=== PATIENT | female | born 1940 | race Caucasian/White ===

== ENCOUNTER 2025-03-08 09:58 | Outpatient (CLI) | payer MEDICARE, SELFPAY ==
--- OUTSIDE RECORDS SUMMARY | 2025-03-08 10:23 | XMS_ITS | Clinical Summary ---
Author Organization [facility] Address [address] [place] [address] Phone Care Team Providers Care Refractory Furnace Designer Name Role Phone OtisLa castañeda Libertad PAC Primary Care Provider [phone] Omar Cortes MD Unavailable [phone] Allergies Active Allergy Reactions Criticality Noted Date Comments Penicillins Hives,Rash Medications Meloxicam 15 MG Tablet Take by mouth. Active clidinium-chlord iazepoxide (LIBRAX) 5-2.5 MG Capsule Take by mouth. Active Dolomite 130-78 MG Tablet Take by mouth. Active simvastatin (ZOCOR) 40 MG Tablet Take 20 mg by mouth. Active potassium chloride SA (KLOR-CON M10) 10 MEQ Tablet Controlled Release Take by mouth. Active lisinopril-hydro chlorothiazide (PRINZIDE, ZESTORETIC) 20-12.5 MG Tablet Take by mouth 2 times daily. Active Cholecalciferol (VITAMIN D3) 1000 UNITS Capsule Take by mouth 2 times daily. Active omeprazole (PRILOSEC) 20 MG CAPSULE DELAYED RELEASE Take 20 mg by mouth. Active amLODIPine (NORVASC) 5 MG Tablet Take 5 mg by mouth daily. Active magnesium oxide (MAG-OX) 400 MG Tablet Take 400 mg by mouth daily. Active Coenzyme Q10 (Co Q-10) 100 MG Capsule Take 100 mg by mouth daily. Active ondansetron (ZOFRAN-ODT) 4 MG TABLET DISPERSIBLE Take 4 mg by mouth every 8 hours as needed. Active famotidine (PEPCID) 20 MG Tablet Take 20 mg by mouth 2 times daily. Active Carboxymethylcel lulose Sodium (EYE DROPS OP) Place in affected eye(s). Active Misc Natural Products (NEURIVA PO) Take by mouth. Active busPIRone (BUSPAR) 5 MG Tablet TAKE 1 TABLET BY MOUTH 2 TIMES DAILY NEEDED FOR OTHER (ANXIETY). 60 Tablet 1 Active fluticasone (FLONASE) 50 MCG/ACT SuspensionIndica tions:Allergic rhinitis, unspecified seasonality, unspecified trigger 2 Sprays by Nasal route daily for 30 days. Use in each nostril as directed. 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 History of right breast cancer 05/18/2024 Unspecified disorder of calcium metabolism 05/18 Resolved Problems Problem Noted Date Diagnosed Date Resolved Date Elevated prostate specific antigen (PSA) 05/18/2024 06/29/2024 Encounters Date Type Department Care Team Description 03/03/2025 9:00 AM CDT Office Visit [facility] [address] [place] [address] Omar Cortes MD Hearing difficulty of both ears (Primary Dx); Allergic rhinitis, unspecified seasonality, unspecified trigger; Rhinitis medicamentosa; Tinnitus, bilateral Discharge Disposition: Discharged to home or Selfcare 03/03/2025 Travel 01/25/2025 11:40 AM CDT [facility] [address] [place] [address] Christopher Pittman MD Bone lesion (Primary Dx); Cancer, metastatic to bone (HCC); Metastatic carcinoid tumor (HCC); History of right breast cancer Discharge Disposition: Discharged to home or Selfcare 01/25/2025 Travel from Last 3 Months Immunizations Immunization Administration Dates Next Due Influenza, Trivalent, Adjuvanted, PF 08/10/2024 Family History Medical History Relation Name Comments Cancer Mother Relation Name Status Comments Mother Social History Tobacco Use Types Packs/Day Years Used Date Smoking Tobacco: Never Smokeless Tobacco: Never Tobacco Cessation:Counseling Given: Not Answered Alcohol Use Standard Drinks/Week Comments Yes 0 (1 standard drink = 0.6 oz pur e alcohol) Comments No Sex and Gender Information Value Date Recorded Sex Assigned at Not on file Legal Sex Female 9:34 PM CDT Gender Identity Not on file Sexual Orientation Not on file Last Filed Vital Signs Vital Sign Reading Time Taken Comments Blood Pressure 122/80 03/03/2025 9:07 AM CDT Pulse 76 03/03/2025 9:07 AM CDT Temperature 36.3 C (97.3 F) 03/03/2025 9:07 AM CDT Respiratory Rate 18 01/25/2025 12:02 PM CDT Oxygen Saturation 98% 03/03/2025 9:07 AM CDT Inhaled Oxygen Concentration - - Weight 72.1 kg (159 lb) 03/03/2025 9:07 AM CDT Height 167.6 cm (5' 6) 03/03/2025 9:07 AM CDT Body Mass Index 25.66 03/03/2025 9:07 AM CDT Plan of Treatment Upcoming Encounters Date Type Department Care Team (Late st Contact Info) Description 03/22/2025 3:00 PM CDT [facility] Visit [facility] [address] [place] [phone] Christopher Pittman MD [address] [place] [address] Discharge Disposition: Discharged to home or Selfcare 03/31/2025 9:30 AM CDT Office Visit [facility] - [place] [address] [place] [address] Omar Cortes MD [address] [place] [address] [phone] Health Maintenance Due Date Last Done Comments Hepatitis C Virus (HCV) Screening 1940 TdaP Immunization 1940 Zoster Immunization (1 of 2) 1957 Respiratory Syncytial Virus (RSV) Immunization (Adult) (1 - 1-dose 75+ series) 2013 SARS-COV-2 Immunization ( season) 2024 03/18/2022, 12/07/2020, 11/09/2020 DEXA Bone Density 07/06/2026 07/06/2024 Pneumococcal Immunization (50+ years) Completed 12/25/2021, 06/15/2018, 10/19/2015 Pneumococcal Immunization Combined Discontinued 12/25/2021, 06/15/2018, 10/19/2015 Influenza Immunization Completed , 07/02/2023, 08/01/2022, Additional history exists Hepatitis B Immunization Aged Out No longer eligible based on patient's age to complete this topic Human Papillomavirus (HPV) Immunization Aged Out No longer eligible based on patient's age to complete this topic Meningococcal Immunization (ACWY) Aged Out No longer eligible based on patient's age to complete this topic Rotavirus Immunization Aged Out No lo nger eligible based on patient's age to complete this topic Procedures Procedure Name Priority Date/Time Associated Diagnosis Comments BONE DENSITY GENERIC 07/06/2024 12:00 AM CDT from Last 3 Months or Most Recently Relevant to Health Maintenance Results * BONE DENSITY GENERIC SCAN (07/06/2024 12:00 AM CDT) 07/06/2024 [facility] Jessica Pittman MD IMG DEXA ORDERABLES Yuly l Result SCAN from Last 3 Months or Most Recently Relevant to Health Maintenance Insurance MEDICARE [employer] Care Teams Refractory Furnace Designer Relationship Specialty Start Date End Date La Burkett, PAC [address] [place] [address] PCP - General Family Medicine 06/29/24 Omar Cortes MD [address] [phone] Consulting Physician Otolaryngology 02/25/25
--- OUTSIDE RECORDS SUMMARY | 2025-03-08 10:23 | XMS_ITS | Clinical Summary ---
Author Organization [facility] [employer] Address [address] [facility] [place] [address] Care Team Providers Care Vp Delivery Name Role Phone Ron Zamudio MD Unavailable [phone] Gogo Contreras MD Unavailable [phone] AslamRayne MD Unavailable La Burkett Primary Care Provider [phone] Source Comments [facility] [employer],non-owned Affiliates and Associated Physician Practices is amultiple site organization consisting of ambulatory clinics and hospital sitesin [place], [place] and [place]. This disclosure is being madepursuant to the Care Everywhere program and may not contain all information available regarding this patient. Last updated 18.[facility] [employer] Allergies Active Allergy Reactions Criticality Noted Date Comments Celecoxib Other 04/16/2018 Black stools Contrast-Iodinated Agents For Ct/Other Nausea and/or Vomiting Low 01/20/2018 Levofloxacin Other 04/16/2018 Tendon Problems Nabumetone Other 04/16/2018 Constipation Penicillins Urticaria,Rash Medium 05/24/2013 Povidone Iodine Nausea and/or Vomiting,Rash Medium 12/26/2017 Shellfish Allergy Anaphylaxis High 12/26/2017 Medications * Be aware that medications may not be up to date on this document. Alwaysverify current medications with the patient. potassium chloride (KLOR-CON 10) 10 MEQ tablet Take 10 mEq by mouth once daily. Active vitamin D, cholecalciferol , 2000 UNITS tablet Take 1,000 Units by mouth once daily. Active lisinopril-hydr ochlorothiazide (PRINZIDE; ZESTORETIC) 20-12.5 MG tablet Take 1 tablet by mouth 2 times daily 07/07/2014 Active omeprazole (PRILOSEC) 20 MG capsule Take 20 mg by mouth as needed 5 01/16/2015 Active simvastatin (ZOCOR) 40 MG tablet 3 02/10/2015 Active COENZYME Q-10 POIndications:P ain in joint, multiple sites Take 100 mg by mouth once daily Active latanoprost (XALATAN) 0.005 % ophthalmic solutionIndicat ions:Pain in joint, multiple sites Instill 1 drop into both eyes once daily 08/21/2017 Active MAGNESIUM OXIDE, ANTACID, POIndications:P ain in joint, multiple sites Take 400 mg by mouth once daily Active [facility] VITAMIN C 500 MG tabletIndicatio ns:Pain in joint, multiple sites Take 1,000 mg by mouth once daily 0 01/21/2018 Active Ibuprofen (ADVIL PO)Indications: Pain in joint, multiple sites Take by mouth as needed Active Active Problems Problem Noted Date Diagnosed Date Essential hypertension 05/24/2013 Overview (07/06/2015): Osteoarthrosis involving lower leg 05/24/2013 Overview (12/30/2015): 2015 IMO Updt Social History Tobacco Use Types Packs/Day Years Used Date Smoking Tobacco: Never Smokeless Tobacco: Never Alcohol Use Standard Drinks/Week Comments Not Asked 0 (1 standard drink = 0.6 oz pur e alcohol) Comments Unknown Sex and Gender Information Value Date Recorded Sex Assigned at Not on file Legal Sex Female 6:27 AM PALLET ASSEMBLER Gender Identity Not on file Sexual Orientation Not on file Last Filed Vital Signs Vital Sign Reading Time Taken Comments Blood Pressure 136/92 05/12/2018 11:05 AM CDT Pulse 76 05/12/2018 11:05 AM CDT Temperature - - Respiratory Rate - - Oxygen Saturation - - Inhaled Oxygen Concentration - - Weight 73.9 kg (163 lb) 05/12/2018 11:05 AM CDT Height 167.6 cm (5' 6) 05/12/2018 11:05 AM CDT Body Mass Index 26.31 05/12/2018 11:05 AM CDT Plan of Treatment Health Maintenance Due Date Last Done Comments BONE DENSITY TESTING 1940 DTAP/TDAP/TD VACCINES (1 - Tdap) 1957 PNEUMOCOCCAL VACCINE 50+ (1 of 1 - PCV) 1988 ZOSTER VACCINE (1 of 2) 1988 Respiratory Syncytial Virus (RSV) Vaccine Pt: or over 60 yrs (1 - 1-dose 75+ series) 2013 COVID-19 VACCINE ( - 2023-2 5 season) 2024 DEPRESSION SCREENING 10/06/2024 INFLUENZA VACCINE (Season Ended) 2025 HEPATITIS B VACCINE Aged Out No longe r eligible based on patient's age to complete this topic HIB VACCINE Aged Out No longer eligi ble based on patient's age to complete this topic HPV VACCINE Aged Out No longer eligi ble based on patient's age to complete this topic MENINGOCOCCAL (Group B) VACC INE SHARED DECISION-MAKING Aged Out No longer eligibl e based on patient's age to complete this topic MENINGOCOCCAL GROUPS A/C/Y/W VACCINE Aged Out No longer eligible b ased on patient's age to complete this topic Insurance MEDICARE [facility] Care Teams Vp Delivery Relationship Specialty Start Date End Date La Burkett PA [address] [place] [address] PCP - General Physician Rectification Printer 04/24/18 [place] [id number] [place] [address] Orthopedic Surgery 05/24/13 [place] [address] [place] [address] Orthopedic Surgery 08/17/14 [place] [address] [place] [phone] Rheumatology 04/16/18
--- OUTSIDE RECORDS SUMMARY | 2025-03-08 10:23 | XMS_ITS | Encounter Summary ---
Author Organization [facility] Address [address] [place] [address] Care Team Providers Care Learning And Development Analyst Name Role Phone La Burkett Primary Care Provider La Burkett Unavailable [phone] Lucio Graves MD PhD Unavailable Lindsay Cao MD Unavailable Shazia Nash NP Unavailable [phone] Truman Chisholm MD Unavailable [phone] Daly Murry MD Unavailable [phone] Marian Lopes MD Unavailable [phone] Truman Chisholm MD Unavailable [phone] Encounter Details Date Type Department Care Team (Late st Contact Info) Description 05/26/2020 Telephone [facility] [address] [place] [address] Olvin Gil, RT Social History Tobacco Use Types Packs/Day Years Used Date Smoking Tobacco: Never Smokeless Tobacco: Never Alcohol Use Standard Drinks/Week Comments Yes 0 (1 standard drink = 0.6 oz pur e alcohol) occas PHQ-2 Answer Date Recorded PHQ-2 Score 0 08/05/2019 Comments No Sex and Gender Information Value Date Recorded Sex Assigned at Not on file Legal Sex Female 7:39 AM VAMP STITCHER Gender Identity Not on file Sexual Orientation Not on file documented as of this encounter Plan of Treatment Not on file documented as of this encounter Visit Diagnoses Not on filedocumented in this encounter Care Teams Learning And Development Analyst Relationship Specialty Start Date End Date La Burkett PA PCP - General 03/06/20 La Burkett PA Internal Medicine 03/06/20 08/18/20 Lucio Graves MD PhD [address] [place] [address] Radiation Oncologist Radiation Oncology 12/08/1908/26 Lindsay Cao MD [id number] [place] [address] Referring Physician Medical Oncology 12/08/19 08/26/23 Shazia Nash, ROVER TENDER [id number] [place] [address] Nurse Practitioner Medical Oncology 12/17/19 Truman Chisholm MD [address] [facility] [address] [place] [address] Medical Oncologist/Medical Legal Investigator Hematology and Oncology 02/15/20 04/02/23 Daly Murry MD [address] [facility] [address] [place] [address] Surgeon Surgical Oncology 04/19/20 08/26/23 Marian Lopes MD [address] [facility] [address] [place] [address] Radiation Oncologist Radiation Oncology 05/26/20 Truman Chisholm MD [address] [facility] [address] [place] [address] Consulting Physician Hematology and Oncology 04/03/23 documented as of this encounter
--- OUTSIDE RECORDS SUMMARY | 2025-03-08 10:23 | XMS_ITS | Referral Summary ---
Author Organization [facility] Address [address] [place] [address] Care Team Providers Care Wood Coater Name Role Phone La Burkett Primary Care Provider Shazia Nash NP Unavailable [phone] Truman Chisholm MD Unavailable Allergies Active Allergy Reactions Criticality Noted Date Comments Celecoxib Other (See comments) Low 04/16/2018 Black stools Iodinated Contrast Media Nausea & Vomiting Low 01/20/2018 Levofloxacin Other (See comments) Low 04/16/2018 Tendon Problems Metrizamide Nausea And Vomiting Low 01/20/2018 Nabumetone Other (See comments) Low 04/16/2018 Constipation Penicillins Hives,Rash,Urticaria Medium 05/24/2013 Shellfish Anaphylaxis High 12/26/2017 Shrimp Anaphylaxis High 12/26/2017 Medications latanoprost (XALATAN) 0.005 % ophthalmic solution INT 1 GTT IN OU Q DADA 2 08/21/20 17 Active ondansetron ODT (ZOFRAN-ODT) 4 mg disintegrating tabletIndications: Prevention of Post-Operative Nausea and Vomiting,nausea and vomiting Take 1 tablet (4 mg total) by mouth every 6 (six) hours as needed for nausea or vomiting. 20 tablet 01/22/20 18 Active lisinopril-hydroCH LOROthiazide (PRINZIDE,ZESTORET IC) 20-12.5 mg per tabletIndications: hypertension Take 1 tablet by mouth 2 times daily Active magnesium oxide (MAG-OX) 400 mg (241.3 mg elemental) tabletIndications: hypomagnesemia Take 2 tablets (800 mg total) by mouth daily Active cholecalciferol (VITAMIN D-3) 2,000 unit capsule Take 1 capsule (2,000 Units total) by mouth daily Active KLOR-CON 10 10 mEq CR tablet Take 1 tablet/capsule (10 mEq total) by mouth daily 3 03/09/20 18 Active simvastatin (ZOCOR) 40 mg tablet Take 0.5 tablets (20 mg total) by mouth daily 3 03/21/20 18 Active amLODIPine (NORVASC) 5 mg tablet Take 1 tablet (5 mg total) by mouth daily Active chlordiazePOXIDE-c lidinium (LIBRAX) 5-2.5 mg per capsuleIndications :1 to 2 caps tid prn Take 1 capsule by mouth 3 (three) times a day as needed for indigestion Active ibuprofen (ADVIL ORAL) Take by mouth as needed Active famotidine (PEPCID) 20 mg tablet TAKE 1 TABLET BY MOUTH ONCE OR TWICE DAILY FOR REFLUX 05/25/20 21 Active fluticasone propionate (FLONASE) 50 mcg/actuation nasal sprayIndications:S ensorineural hearing loss (SNHL) of both ears Administer 2 sprays into each nostril daily 16 g 11 09/09/20 22 Active furosemide (LASIX) 20 mg tablet TAKE ONE HALF TO ONE TABLET BY MOUTH EVERY DAY NEEDED FOR EDEMA 11/18/19 23 Active ondansetron (ZOFRAN) 4 mg tablet TAKE 1 EVERY 6 HOURS NEEDED 11/18/19 23 Active predniSONE (DELTASONE) 50 mg tabletIndications: Malignant carcinoid tumor of lung (HCC),Malignant neoplasm of right breast in female, estrogen receptor positive, unspecified site of breast (HCC) Take 1 tablet (50 mg) by mouth daily TAKE 13 HRS, 7 HRS, AND [address] SCAN. TAKE WITH OTC BENADRYL 50 MG 1 HR PRIOR 3 tablet 05/22/20 23 Active Active Problems Problem Noted Date Diagnosed Date Sensorineural hearing loss (SNHL) of both ears 1 11/10/2021 Assessment & Plan (09/09/2022 9:45 AM AUTOMATIC BEADING LATHE OPERATOR): Hearing test [facility] CT head without contrast Anosmia 09/09/2022 Assessment & Plan (09/09/2022 9:46 AM AUTOMATIC BEADING LATHE OPERATOR): AVOID AFRIN OR NEOSINEPHRINE Flonase 2 sprays into each nostril while looking down over the sink, do not sniff in or blow nose after use for at least [address] head without contrast Olfactory training discussed and Handout provided Rhinitis medicamentosa 09/09/2022 Assessment & Plan (09/09/2022 9:46 AM AUTOMATIC BEADING LATHE OPERATOR): AVOID AFRIN OR NEOSINEPHRINE Flonase 2 sprays into each nostril while looking down over the sink, do not sniff in or blow nose after use for at least 30 minutes daily Malignant neoplasm of right breast in female, estrogen receptor positive 04/23/2020 Cancer Staging:Pathologic stage from 04/25/2020:Stage IA(pT1a, pN0(mol+)(sn), cM0, G2, ER+, CO+, HER2-) - Signed by Marian Lopes MD on 05/26/2020 Surgical follow-up care 04/23/2020 Neoplasm of right breast, 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 We discussed doing colonoscopy due to her history of cancer but patient refused. She did have CT in May 2019 that was unremarkable. No blood in stool, no fever, chills, or abdominal pain. She has about 5-6 loose stools daily. She had her gallbladder removed several years ago. Will call in cholestyramine daily. She can continue to use Librax prn. Stop dicyclomine. Assessment & Plan (07/25/2019 11:01 AM CDT): Will start with symptomatic treatment since she is not interested in colonoscopy or further testing. Start Dicyclomine 10 mg PO tid before meals. May use imodium OTC as well. If no response will try lomotil and re visit the issue of colonoscopy. Also advised to take her Xanax daily to help with her anxiety which may contribute to the diarrhea. Anxiety 07/25/2019 Assessment & Plan (08/05/2019 9:57 AM CDT): She says she uses Librax prn instead of xanax. Pt says she has stopped the xanax. Assessment & Plan (07/25/2019 11:02 AM CDT): She was given Xanax but she is not taking. Advised to start taking Xanax daily. 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 Carcinoids can cause chronic diarrhea, and may have lesions in the intestine. She is not interested in colonoscopy at this time. 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 Keratosis, senilis 09/25/2015 Hemangioma of skin 09/23/2014 Dermatofibroma 09/23/2014 Inflamed seborrheic keratosis 09/23/2014 Essential hypertension 05/24/2013 Overview (11/05/2017): Overview: Osteoarthrosis involving lower leg 05/24/2013 Overview (11/05/2017): Overview: 2015 IMO Updt Skin benign neoplasm 02/12/2012 Lentigo 02/12/2012 Immunizations Immunization Administration Dates Next Due Influenza, Quad, Adjuvantate d, Intramuscular 07/15/2022 Influenza, Quadrivalent, Hig h Dose, Preservative Free, Intrr 07/19/2021,07/12/2020,07/12/2020 Influenza, Trivalent, High D ose, Split, Preservative Free, Intramuscular 07/29/2019,07/14/2019 Influenza, Unspecified 08/01/2022 Moderna SARS-CoV-2 Monovalen t Vaccination (12+ YRS) 11/09/2020,11/06/2020 Social History Tobacco Use Types Packs/Day Years [...] on file Legal Sex Female 7:39 AM AUTOMATIC BEADING LATHE OPERATOR Gender Identity Not on file Sexual Orientation Not on file Last Filed Vital Signs Vital Sign Reading Time Taken Comments Blood Pressure 147/72 04/23/2024 9:42 AM CDT Pulse 82 04/23/2024 9:42 AM CDT Temperature 36.3 C (97.3 F) 04/23/2024 9:42 AM CDT Respiratory Rate 20 04/23/2024 9:42 AM CDT Oxygen Saturation 96% 04/23/2024 9:42 AM CDT Inhaled Oxygen Concentration - - Weight 77.1 kg (170 lb) 04/23/2024 9:42 AM CDT Height 162.6 cm (5' 4) 04/01/2024 10:09 AM CDT Body Mass Index 29.18 04/01/2024 10:09 AM CDT Plan of Treatment Not on file Medical Devices Implanted Type Area Fish Farm Manager Device Identifier Shelf Expiration Date Model / Serial / Lot Baseplate Glenoid Equinoxe 8 D Shoulder Right Posterior Augment - [id number] - [id number] Implanted:Qty: 1 on 01/20/2018 by John Balderrama MD at [facility] Right: Shoulder Exactech 11/19/2027 320-15-04 / [id number] / Liner Humeral Equinoxe +0 Mm Od38 Mm Shoulder Reverse - [id number] - [id number] Implanted:Qty: 1 on 01/20/2018 by John Balderrama MD at [facility] Right: Shoulder Exactech 12/23/2022 320-38-00 / [id number] / Kit Screw Shoulder Reverse Torque Define - [id number] - [id number] Implanted:Qty: 1 on 01/20/2018 by John Balderrama MD at [facility] Right: Shoulder Exactech 11/25/2022 320-20 / [id number] / Screw Bone Equinoxe Shoulder Glenosphere Lock Reverse - [id number] - [id number] Implanted:Qty: 1 on 01/20/2018 by John Balderrama MD at [facility] Right: Shoulder Exactech 12/11/2022 320-15-05 / [id number] / Screw Bone Equinoxe L22 Mm Od4.5 Mm Shoulder Kit Compression Lock Cap Reverse Black - [id number] - [id number] Implanted:Qty: 1 on 01/20/2018 by John Balderrama MD at [facility] Right: Shoulder Exactech 12/28/2022 32020- / [id number] / Screw Bone Equinoxe L30 Mm Od4.5 Mm Shoulder Kit Compression Lock Cap Reverse Blue - [id number] - [id number] Implanted:Qty: 1 on 01/20/2018 by John Balderrama MD at [facility] Right: Shoulder Exactech 07/28/2022 3202030 / [id number] / Component Glenoid Od38 Mm Shoulder Glenosphere Reverse - [id number] - [id number] Implanted:Qty: 1 on 01/20/2018 by John Balderrama MD at [facility] Right: Shoulder Exactech 11/25/2027 320 / [id number] / Screw Bone Equinoxe L22 Mm Od4.5 Mm Shoulder Kit Compression Lock Cap Reverse Black - [id number] - [id number] Implanted:Qty: 1 on 01/20/2018 by John Balderrama MD at [facility] Right: Shoulder Exactech 03/19/2022 320- / [id number] / Equinoxe Humeral Stem, Primary, Press-Fit (300--14) Implanted:Qty: 1 on 01/20/2018 by John Balderrama MD at [facility] Right: Shoulder Exactech [id number] 12/19/2027 300-01-14 / [id number] / Tray Humeral Adapter Equinoxe +0 Mm Reverse Shoulder System - [id number] - [id number] Implanted:Qty: 1 on 01/20/2018 by John Balderrama MD at [facility] Right: Shoulder Exactech 10/07/2027 320-10-00 / [id number] / Insurance MEDICARE [facility] Address: [facility] [address] [place] [address] [facility] MEDICARE Member Subscriber Plan / Payer (Ef fective 2003-Present) Name:DES MILTON Member ID:[id number] Relation to Subscriber:Self Name:Dimple Milton Subscriber ID:[id number] Payer ID:[id number] Group ID:Not on file Type:MEDICARE TRADITIONAL Address: [place] [id number] [facility] MEDICARE [facility] AARP Advance Directives For more information, please contact: [phone] * Full Code (Latest Code Status on File) Date Activated Date Inactivated Comments 01/20/2018 11:22 AM 01/21/2018 1:09 PM Care Teams Wood Coater Relationship Specialty Start Date End Date La Burkett PA PCP - General 03/06/20 Shazia Nash NP Nurse Practitioner Medical Oncology 12/17/19 Truman Chisholm MD Consulting Physician Hematology and Oncology 04/03/23
--- OUTSIDE RECORDS SUMMARY | 2025-03-08 10:23 | XMS_ITS ---
Author Organization [facility] Address [address] [place] [address] Care Team Providers Care Tool Grinding Machine Operator Name Role Phone La Burkett Primary Care Provider Shazia Nash NP Unavailable [phone] Truman Chisholm MD Unavailable [phone] Active Problems Problem Noted Date Diagnosed Date Sensorineural hearing loss (SNHL) of both ears 1 11/10/2021 Assessment & Plan (09/09/2022 9:45 AM DIRECTOR STATISTICAL PROGRAMMING): Hearing test [facility] CT head without contrast Anosmia 09/09/2022 Assessment & Plan (09/09/2022 9:46 AM DIRECTOR STATISTICAL PROGRAMMING): AVOID AFRIN OR NEOSINEPHRINE Flonase 2 sprays into each nostril while looking down over the sink, do not sniff in or blow nose after use for at least [address] head without contrast Olfactory training discussed and Handout provided Rhinitis medicamentosa 09/09/2022 Assessment & Plan (09/09/2022 9:46 AM DIRECTOR STATISTICAL PROGRAMMING): AVOID AFRIN OR NEOSINEPHRINE Flonase 2 sprays into each nostril while looking down over the sink, do not sniff in or blow nose after use for at least 30 minutes daily Malignant neoplasm of right breast in female, estrogen receptor positive 04/23/2020 Cancer Staging:Pathologic stage from 04/25/2020:Stage IA(pT1a, pN0(mol+)(sn), cM0, G2, ER+, AL+, HER2-) - Signed by Marian Lopes MD [...] (12/18/2017): Added automatically from request for surgery [id number] Rotator cuff arthropathy, right 12/18/2017 Overview (12/18/2017): Added automatically from request for surgery [id number] Telogen effluvium 09/25/2015 Keratosis, senilis 09/25/2015 Hemangioma of skin 09/23/2014 Dermatofibroma 09/23/2014 Inflamed seborrheic keratosis 09/23/2014 Essential hypertension 05/24/2013 Overview (11/05/2017): Overview: Osteoarthrosis involving lower leg 05/24/2013 Overview (11/05/2017): Overview: 2015 IMO Updt Skin benign neoplasm 02/12/2012 Lentigo 02/12/2012 Current Treatment and Therapy Plans No current plan information found. Past Treatment and Therapy Plans No past plan information found. Lifetime Dose Tracking * Chemical Lifetime Dose Automatic Entry Manual Entr y DLP 1,971 mGycm 1,971 mGycm 0 mGycm
--- OUTSIDE RECORDS SUMMARY | 2025-03-08 10:23 | XMS_ITS | Clinical Summary ---
Author Organization [facility] Address [address] [place] [address] Care Team Providers Care White Metal Corrosion Proofer Name Role Phone La Burkett Primary Care Provider Shazia Nash NP Unavailable Truman Chisholm MD Unavailable [phone] Allergies Active Allergy Reactions Criticality Noted Date [...] 11/10/2021 Assessment & Plan (09/09/2022 9:45 AM HOME HEALTH CARE COORDINATOR): Hearing test [facility] CT head without contrast Anosmia 09/09/2022 Assessment & Plan (09/09/2022 9:46 AM HOME HEALTH CARE COORDINATOR): AVOID AFRIN OR NEOSINEPHRINE Flonase 2 sprays into each nostril while looking down over the sink, do not sniff in or blow nose after use for at least [address] head without contrast Olfactory training discussed and Handout provided Rhinitis medicamentosa 09/09/2022 Assessment & Plan (09/09/2022 9:46 AM HOME HEALTH CARE COORDINATOR): AVOID AFRIN OR NEOSINEPHRINE Flonase 2 sprays into each nostril while looking down over the sink, do not sniff in or blow nose after use for at least 30 minutes daily Malignant neoplasm of right breast in female, estrogen receptor positive 04/23/2020 Cancer Staging:Pathologic stage from 04/25/2020:Stage IA(pT1a, pN0(mol+)(sn), cM0, G2, ER+, WA+, HER2-) - Signed by Marian Lopes MD [...] (12/18/2017): Added automatically from request for surgery [id number] Rotator cuff arthropathy, right 12/18/2017 Overview (12/18/2017): Added automatically from request for surgery [id number] Telogen effluvium 09/25/2015 Keratosis, senilis 09/25/2015 Hemangioma [...] SARS-CoV-2 Monovalen t Vaccination (12+ YRS) 11/09/2020,11/06/2020 Surgical History Surgery Date Site/Laterality Comments HYSTERECTOMY KIDNEY STONE SURGERY COLONOSCOPY CHOLECYSTECTOMY SHOULDER SURGERY Right ANKLE FRACTURE SURGERY 10/06/1969 - 10/05/1970 Left BREAST LUMPECTOMY Right Medical History Medical History Date Comments Hypertension High cholesterol Hiatal hernia Kidney stones Neuropathy in [place] feet Osteoarthritis Irritable bowel syndrome GERD (gastroesophageal reflux disease) Lung cancer (HCC) 2016 right-- had ra diation; mets to liver--had radiation Breast cancer in female (HCC) ri ght breast Family History Medical History Relation Name Comments Arthritis Brother Heart disease Brother Hypertension Father Stroke Maternal Grandmother Cancer Mother Heart disease Mother Lung cancer Mother Relation Name Status Comments Brother Father Maternal Grandmother Mother Social History Tobacco Use Types Packs/Day [...] on file Legal Sex Female 7:39 AM HOME HEALTH CARE COORDINATOR Gender Identity Not on file Sexual Orientation Not on file Obstetrics History Para Term AB IAB SAB Ectopic Multiple Livin g Live Births 0 0 0 0 0 0 0 0 0 0 0 Last Filed Vital Signs Vital Sign Reading [...] 04/01/2024 10:09 AM CDT Plan of Treatment Health Maintenance Due Date Last Done Comments DTaP/Tdap/Td Vaccine (1 - Tdap) 1951 Hepatitis B Screening 1958 Pneumococcal vaccine 65+ (1 of 2 - PCV) 1957 Zoster Vaccine (1 of 2) 1957 Well Visit 65+ 2003 Depression Screening 08/05/2020 08/05/2019, 08/05/20 19 Fall Risk Assessment 04/19/2021 04/19/2020, 08/05/20 19 Covid-19 Vaccine (2023-2 5 season) 2024 03/18/2022, 09/18/2021, 12/07/2020, Additional history exists Influenza Vaccine (Season Ended) 2025 08/01/2022, 07/15/2022, 07/19/2021, Additional history exists Medical Devices Implanted Type Area Softlines Supervisor Device Identifier Shelf Expiration Date Model / Serial / Lot Baseplate Glenoid Equinoxe 8 D Shoulder Right Posterior Augment - [id number] - [id number] Implanted:Qty: 1 on 01/20/2018 by John Balderrama MD at [facility] Right: Shoulder Exactech 11/19/2027 320-15-04 / [id number] / Liner Humeral Equinoxe +0 Mm Od38 Mm Shoulder Reverse - [id number] - [id number] Implanted:Qty: 1 on 01/20/2018 by John Balderrama MD at [facility] Right: Shoulder Exactech 12/23/2022 320-38-00 / [id number] / Kit Screw Shoulder Reverse Torque Define - [id number] - [id number] Implanted:Qty: 1 on 01/20/2018 by John Balderrama MD at [facility] Right: Shoulder Exactech 11/25/2022 320-20-00 / [id number] / Screw Bone Equinoxe Shoulder Glenosphere Lock Reverse - [id number] - [id number] Implanted:Qty: 1 on 01/20/2018 by John Balderrama MD at [facility] Right: Shoulder Exactech 12/11/2022 320-15-05 / [id number] / Screw Bone Equinoxe L22 Mm Od4.5 Mm Shoulder Kit Compression Lock Cap Reverse Black - [id number] - [id number] Implanted:Qty: 1 on 01/20/2018 by John Balderrama MD at [facility] Right: Shoulder Exactech 12/28/2022 320-20-22 / [id number] / Screw Bone Equinoxe L30 Mm Od4.5 Mm Shoulder Kit Compression Lock Cap Reverse Blue - [id number] - [id number] Implanted:Qty: 1 on 01/20/2018 by John Balderrama MD at [facility] Right: Shoulder Exactech 07/28/2022 320-20-30 / [id number] / Component Glenoid Od38 Mm Shoulder Glenosphere Reverse - [id number] - [id number] Implanted:Qty: 1 on 01/20/2018 by John Balderrama MD at [facility] Right: Shoulder Exactech 11/25/2027 320- / [id number] / Screw Bone Equinoxe L22 Mm Od4.5 Mm Shoulder Kit Compression Lock Cap Reverse Black - [id number] - [id number] Implanted:Qty: 1 on 01/20/2018 by John Balderrama MD at [facility] Right: Shoulder Exactech 03/19/2022 320 / [id number] / Equinoxe Humeral Stem, Primary, Press-Fit (300--14) Implanted:Qty: 1 on 01/20/2018 by John Balderrama MD at [facility] Right: Shoulder Exactech [id number] 12/19/2027 300--14 / [id number] / Tray Humeral Adapter Equinoxe +0 Mm Reverse Shoulder System - [id number] - [id number] Implanted:Qty: 1 on 01/20/2018 by John Balderrama MD at [facility] Right: Shoulder Exactech 10/07/2027 320-10-00 / [id number] / Insurance MEDICARE [facility] MEDICARE [facility] MEDICARE [facility] Address: [id number] [place] [address] [facility] Advance Directives For more information, please contact: [phone] * Full Code (Latest Code Status on File) Date Activated Date Inactivated Comments 01/20/2018 11:22 AM 01/21/2018 1:09 PM Care Teams White Metal Corrosion Proofer Relationship Specialty Start Date End Date La Burkett PA PCP - General 03/06/20 Shazia Nash NP Nurse Practitioner Medical Oncology 12/17/19 Truman Chisholm MD Consulting Physician Hematology and Oncology 04/03/23
== END 2025-03-08 09:59 | disposition home or self-care (01) ==
LOC: ANHBWCAUD 10:01
PROVIDERS: PCP Otolaryngology Otolaryngology/Facial Plastic Surgery; Visit Provider Otolaryngology Otolaryngology/Facial Plastic Surgery
DX: H90.3 Sensorineural hearing loss, bilateral (principal)
CPT/HCPCS: 92557; 92567

== ENCOUNTER 2025-04-12 13:00 | Outpatient (RCR) | payer SELFPAY | END 2025-06-27 23:59 | disposition home or self-care (01) | LOC: ANHBWCAUD 13:00 | PROVIDERS: PCP Otolaryngology Otolaryngology/Facial Plastic Surgery; Visit Provider Otolaryngology Otolaryngology/Facial Plastic Surgery | DX: Z46.1 Encounter for fitting and adjustment of hearing aid (principal) | CPT/HCPCS: 99199; V5261 ==